=== PATIENT | female | born 1960 | race Caucasian/White ===

== ENCOUNTER 2017-07-08 12:24 | Emergency (ER) | payer BC ==
[~2017-07-08] VITALS: Ht 160 cm; Wt 58.9 kg
[~2017-07-08 12:24] MED LIST: ALBUAER3 INH; CHOL1CAP34 PO; CYCL1TAB29 PO; DIAZ10 PO; DILA2TAB2 PO; DYAZ37.5 PO; OMEP20TA PO; VITA10002 IM
[2017-07-08 12:31] VITALS: BP 142/81; PULSE 98; RESP 16; TEMP 98.9; O2SAT 96
[2017-07-08] MEDS ORDERED: POTA8CAP PO (13:01)
[2017-07-08] MEDS ORDERED: MONT10TA4 PO (13:01)
[2017-07-08] MEDS ORDERED: VENTAER INH (13:01)
[2017-07-08] MEDS ORDERED: FLUT50SP EACH NARE (13:01)
[2017-07-08] MEDS ORDERED: HYDR4TAB PO (13:01)
[2017-07-08] MEDS ORDERED: FLUT100A INH (13:01)
[2017-07-08] MEDS ORDERED: ERGO2000 PO (13:01)
[2017-07-08] MEDS ORDERED: ACYC800T PO (13:01)
[2017-07-08] MEDS ORDERED: TEMA22.5 PO (13:01)
[2017-07-08] MEDS ORDERED: AMPH30CA PO (13:01)
--- NOTE | 2017-07-08 13:40 | PD ---
HPI Chief Complaint: Abdominal Pain Time Seen by Provider: 12:46 Travel History International Travel<30 days: No Contact w/Intl Traveler<30days: No Traveled to known affect area: No History of Present Illness HPI The patient was seen and examined in the presence of the nurse. At no point in time was I in the room without the nurse present. This patient has history of fibromyalgia and takes Dilaudid at home when needed for pain. She says that she 's had pain for 4 years. She came in today because her pain felt somewhat different than usual. No acute injury. No fever. Her symptoms are reportedly moderate. No alleviating factors. She says she did not take any pain pills even though she has been at home. PFSH Past Medical History Hx Anticoagulant Therapy: No Autoimmune Disease: No Anxiety: Yes Depression: Yes (MANY YEARS AGO) Heart Rhythm Problems: Yes (heart palpitations induced by exercise) Cancer: Yes (CERVICAL) Cardiovascular Problems: No Chemotherapy: No COPD: Yes Cerebrovascular Accident: No Diabetes: No Diminished Hearing: No Fibromyalgia: Yes GERD: Yes Genitourinary: No Hypertension: Yes Implanted Vascular Access Dvce: Yes Musculoskeletal: Yes Neurologic: Yes Reproductive: Yes ( CERVICAL CA) Respiratory: Yes (copd) Immunizations Current: Yes Tetanus Vaccination: > 5 Years Influenza Vaccination: No ?: Not Past Surgical History Abdominal Surgery: Yes (TUMMY TUCK) Body Medical Devices: BREAST IMPLANTS Cardiac Surgery: Yes (CARDIAC CATH, ANGIOPLASTY) Section: Yes (x1) Eye Surgery: Yes (EYELID LIFT) Gynecologic Surgery: Yes (HYSTERECTOMY, ) Hysterectomy: Yes Oral Surgery: Yes (TONSILLECTOMY) Tonsillectomy: Yes Other Surgery: Yes (breast reduction-several per pt) Social History Alcohol Use: Yes (beer occ) Tobacco Use: No (never) Substance Use: No Allergies-Medications (Allergen,Severity, Reaction): Coded Allergies: baclofen (Unverified Allergy, Severe, blurred vision, 07/08/17) desvenlafaxine (Unverified Allergy, Severe, everything, 07/08/17) duloxetine (Unverified Allergy, Severe, VISUAL DISTURBANCE, 07/08/17) gabapentin (Unverified Allergy, Severe, swelling, 07/08/17) pregabalin (Unverified Allergy, Severe, swelling, 07/08/17) acetaminophen (Unverified Allergy, Intermediate, visual, 07/08/17) celecoxib (Unverified Allergy, Intermediate, visual changes, 07/08/17) hydrocodone (Unverified Allergy, Intermediate, visual, 07/08/17) zolpidem (Unverified Allergy, Intermediate, amnesia, 07/08/17) carvedilol (Unverified Allergy, Mild, drowsiness, 07/08/17) Reported Meds & Prescriptions Reported Meds & Active Scripts Active Reported Flovent Diskus Inh (Fluticasone Powder Inh) 100 Mcg/Blist Aerp 100 Mcg INH BID Ventolin Hfa 18 GM Inh (Albuterol Sulfate) 90 Mcg/Act Aer 2 Puff INH Q4-6H PRN Fluticasone Nasal [place] 50 Mcg/Act Naspr 50 Mcg EACH NARE BID 50 mcg/spray Potassium Chloride ER (Potassium Chloride) 8 Meq Cap 8 Meq PO DAILY Acyclovir 800 Mg Tab 800 Mg PO TID Temazepam 22.5 Mg Cap 22.5 Mg PO HS PRN Hydromorphone (Hydromorphone HCl) 4 Mg Tab 4 Mg PO BID PRN Amphetamine-Dextroamphetamine ER 24 HR 30 Mg Cap 30 Mg PO DAILY Once daily in the morning. Vitamin D2 (Ergocalciferol) 2,000 Unit Tab 50,000 Units PO WEEKLY Montelukast (Montelukast Sodium) 10 Mg Tab 10 Mg PO HS Proair Hfa 8.5 GM Inh (Albuterol Sulfate) 90 Mcg/Act Aer 2 Puff INH Q4-6H PRN 108 mcg/actuation Flexeril (Cyclobenzaprine HCl) 10 Mg Tab 10 Mg PO TID Valium (Diazepam) 10 Mg Tab 10 Mg PO HS PRN Vitamin B-12 (Cyanocobalamin) 1,000 Mcg Tab 1,000 Mcg IM EVERY OTHER WEEK Omeprazole 20 Mg Tab 20 Mg PO DAILY Dyazide (Triamterene-Hydrochlorothiazide) 37.5-25 Mg Cap 1 Cap PO HS Review of Systems Cardiovascular: No: Chest Pain or Discomfort Respiratory: No: Cough Gastrointestinal: No: Diarrhea Musculoskeletal: Positive: Pain Physical Exam Narrative GASTROINTESTINAL: Abdomen soft, non-tender, nondistended. Positive bowel sounds. No hepato-splenomegaly, or palpable masses. No guarding. SKIN: Focused skin assessment reveals no rash or ulcers. Skin is warm and dry. Palpation shows no induration or nodules. Data Data Last Documented VS Vital Signs Date Time Temp Pulse Resp B/P (MAP) Pulse Ox O2 Delivery O2 Flow Rate FiO2 07/08/17 12:31 98.9 98 16 142/81 (101) 96 MDM Medical Decision Making Medical Screen Exam Complete: Yes Emergency Medical Condition: Yes Medical Record Reviewed: Yes Differential Diagnosis Chronic pain syndrome, fibromyalgia, depression Narrative Course I have reviewed the patient's electronic medical record. Patient reports that she's had extensive workup for this pain including imaging and specialty consultation. She doesn't look to be in any pain. Her vital signs and exam are benign. It's hard to get out of the patient why she really even came. Very difficult for her to elicit a chief complaint. I don't see any objective evidence of emergent condition here. She says she just saw her family doctor recently for this. When I ask her what they discussed her decided she doesn't have any idea. She then says that she is here to get some pain relief. I offered her a couple of different things and she refused them both. She then got very upset and irate. I just don't have anything emergent to recommend for the situation. She ended up just walking out rather than waiting for her instructions or paperwork. After I had left the room the patient then told the nurse that she really just came here to have her headache evaluated. However, she never once mentioned headache to me. This whole situation was very bizarre. Diagnosis Primary Impression: Chronic pain syndrome Additional Instructions: The patient was advised to follow up with their physician and return if they worsen. Med/Other Pt SpecificInfo: Other Disposition: 01 DISCHARGE HOME Condition: Stable Kevin Lemus MD Jul 08, 2017 13:40
== END 2017-07-08 13:58 | disposition home or self-care (01) ==
LOC: PHED 12:24
DX: G89.4 Chronic pain syndrome (principal)
CPT/HCPCS: 99281

== ENCOUNTER 2018-01-09 14:55 | Emergency (ER) | payer BC ==
[~2018-01-09] VITALS: Ht 160 cm; Wt 62.0 kg
[~2018-01-09 14:55] MED LIST changes: +ACYC800T PO; +AMPH30CA PO; -CHOL1CAP34 PO; +CYCL10TA PO; -CYCL1TAB29 PO; -DILA2TAB2 PO; +ERGO2000 PO; +FLUT100A INH; +FLUT50SP EACH NARE; +HYDR4TAB PO; +MONT10TA4 PO; -OMEP20TA PO; +OMEP20TA93 PO; +POTA8CAP PO; +TEMA22.5 PO; +VENTAER INH
[2018-01-09 15:51] VITALS: BP 132/74; PULSE 105; RESP 16; TEMP 98.5; O2SAT 97
[2018-01-09] MEDS ORDERED: KETOROLAC TROMETHAMINE 60 MG/2 ML (IM) VIAL IM ONE (16:30)
--- NOTE | 2018-01-09 16:53 | RADRPT ---
EXAM DATE/TIME: 01/09/2018 16:30 [facility] COMPARISON: No previous studies available for comparison. INDICATIONS : Trauma, fall. Syncopal episode. RADIATION DOSE: 59.01 CTDIvol (mGy) MEDICAL HISTORY : None SURGICAL HISTORY : None. ENCOUNTER: Initial ACUITY: 1 day PAIN SCALE: 4/10 LOCATION: cranial TECHNIQUE: Multiple contiguous axial images were obtained of the head. Using automated exposure control and adj ustment of the mA and/or kV according to patient size, radiation dose was kept as low as reasonably a chievable to obtain optimal diagnostic quality images. DICOM format image data is available electro nically for review and comparison. FINDINGS: CEREBRUM: The ventricles are normal for age. No evidence of midline shift, mass lesion, hemorrhage or acute in farction. No extra-axial fluid collections are seen. POSTERIOR FOSSA: The cerebellum and brainstem are intact. The 4th ventricle is midline. The cerebellopontine angle i s unremarkable. EXTRACRANIAL: The visualized portion of the orbits is intact. SKULL: The calvaria is intact. No evidence of skull fracture. CONCLUSION: Negative for acute process George Pitts MD FACR on January 09, 2018 at 16:50 Board Certified Radiologist. This report was verified electronically.
--- NOTE | 2018-01-09 16:54 | PD ---
HPI Chief Complaint: Fall Time Seen by Provider: 16:02 Travel History International Travel<30 days: No Contact w/Intl Traveler<30days: No Traveled to known affect area: No History of Present Illness HPI 57-year-old female arrives with a complaint of pain from the coccyx of the cervical spine which she states is constant and severe. It started when she fell over and her kitchen. The fall was about 2 weeks ago. She reports acute on chronic pain. She reports only Dilaudid was effective for pain control. She has missed doctor's appointments due to pain. She reports movement is painful. She also describes a sensation of confusion and vague headache. Patient denies loss of consciousness. No fecal or urinary incontinence or change in bowel bladder habits. PFSH Past Medical History Hx Anticoagulant Therapy: No Autoimmune Disease: No Anxiety: Yes Depression: Yes (MANY YEARS AGO) Heart Rhythm Problems: Yes (heart palpitations induced by exercise) Cancer: Yes (CERVICAL) Cardiovascular Problems: No Chemotherapy: No COPD: Yes Cerebrovascular Accident: No Diabetes: No Diminished Hearing: No Fibromyalgia: Yes GERD: Yes Genitourinary: No Hypertension: Yes Implanted Vascular Access Dvce: Yes Musculoskeletal: Yes Neurologic: Yes Reproductive: Yes ( CERVICAL CA) Respiratory: Yes (copd) Immunizations Current: Yes Past Surgical History Abdominal Surgery: Yes (TUMMY TUCK) Body Medical Devices: BREAST IMPLANTS Cardiac Surgery: Yes (CARDIAC CATH, ANGIOPLASTY) Section: Yes (x1) Eye Surgery: Yes (EYELID LIFT) Gynecologic Surgery: Yes (HYSTERECTOMY, ) Hysterectomy: Yes Oral Surgery: Yes (TONSILLECTOMY) Tonsillectomy: Yes Other Surgery: Yes (breast reduction-several per pt) Social History Alcohol Use: Yes (beer occ) Tobacco Use: No (never) Substance Use: No Allergies-Medications (Allergen,Severity, Reaction): Coded Allergies: baclofen (Unverified Allergy, Severe, blurred vision, 01/09/18) desvenlafaxine (Unverified Allergy, Severe, everything, 01/09/18) duloxetine (Unverified Allergy, Severe, VISUAL DISTURBANCE, 01/09/18) gabapentin (Unverified Allergy, Severe, swelling, 01/09/18) pregabalin (Unverified Allergy, Severe, swelling, 01/09/18) acetaminophen (Unverified Allergy, Intermediate, visual, 01/09/18) celecoxib (Unverified Allergy, Intermediate, visual changes, 01/09/18) hydrocodone (Unverified Allergy, Intermediate, visual, 01/09/18) zolpidem (Unverified Allergy, Intermediate, amnesia, 01/09/18) carvedilol (Unverified Allergy, Mild, drowsiness, 01/09/18) Reported Meds & Prescriptions Reported Meds & Active Scripts Active Robaxin (Methocarbamol) 500 Mg Tab 500 Mg PO TID Reported Adderall (Amphetamine-Dextroamphetamine) 20 Mg Tab 20 Mg PO DAILY Avoid late evening doses. Space doses at least 4 to 6 hours if more than once/day dosing. Fluticasone Nasal [place] 50 Mcg/Act Naspr 50 Mcg EACH NARE BID 50 mcg/spray Ventolin Hfa 18 GM Inh (Albuterol Sulfate) 90 Mcg/Act Aer 2 Puff INH Q4-6H PRN Potassium Chloride ER (Potassium Chloride) 8 Meq Cap 8 Meq PO DAILY Acyclovir 800 Mg Tab 800 Mg PO TID Temazepam 22.5 Mg Cap 22.5 Mg PO HS PRN Hydromorphone (Hydromorphone HCl) 4 Mg Tab 4 Mg PO BID PRN Montelukast (Montelukast Sodium) 10 Mg Tab 10 Mg PO HS Valium (Diazepam) 10 Mg Tab 10 Mg PO HS PRN Omeprazole 20 Mg Tab 20 Mg PO DAILY Dyazide (Triamterene-Hydrochlorothiazide) 37.5-25 Mg Cap 1 Cap PO HS Review of Systems Except as stated in HPI: all other systems reviewed are Neg General / Constitutional: No: Fever, Chills Cardiovascular: No: Chest Pain or Discomfort, Tachycardia Respiratory: No: Wheezing Gastrointestinal: No: Diarrhea Genitourinary: No: Frequency Physical Exam Narrative GENERAL: 57-year-old female mild to moderate distress secondary to pain and/or anxiety Vital Signs Date Time Temp Pulse Resp B/P (MAP) Pulse Ox O2 Delivery O2 Flow Rate FiO2 01/09/18 15:51 98.5 105 16 132/74 (93) 97 SKIN: Warm and dry. HEAD: Atraumatic. Normocephalic. EYES: Pupils equal and round. No scleral icterus. No injection or drainage. ENT: No nasal bleeding or discharge. Mucous membranes pink and moist. NECK: Trachea midline. No JVD. CARDIOVASCULAR: Tachycardia. Regular rhythm. RESPIRATORY: No accessory muscle use. Clear to auscultation. Breath sounds equal bilaterally. GASTROINTESTINAL: Abdomen soft, non-tender, nondistended. Hepatic and splenic margins not palpable. MUSCULOSKELETAL: Diffuse nonspecific paraspinal and spinal tenderness. Patient is ambulatory. NEUROLOGICAL: Awake and alert. No obvious cranial nerve deficits. Motor grossly within normal limits. Five out of 5 muscle strength in the arms and legs. Normal speech. The patellar tendon reflexes 2+ bilaterally. There is no ankle clonus which the patient states is chronic. PSYCHIATRIC: Appropriate mood and affect; insight and judgment normal. Data Data Last Documented VS Vital Signs Date Time Temp Pulse Resp B/P (MAP) Pulse Ox O2 Delivery O2 Flow Rate FiO2 01/09/18 16:20 Room Air 01/09/18 15:51 98.5 105 16 132/74 (93) [address] Brain W/O Iv Contrast(Rout) (01/09/18 ) Ketorolac Inj (Toradol Inj) (01/09/18 16:30) MDM Medical Decision Making Medical Screen Exam Complete: Yes Emergency Medical Condition: Yes Medical Record Reviewed: Yes Differential Diagnosis Chronic pain, acute on chronic pain, fracture, myofascial strain, epidural abscess, paraspinal hematoma, compression on the cord, lumbar spine fracture Narrative Course Patient's complaint, acute on chronic pain due to a fall at her house 2 weeks ago, reveals no acute physical exam abnormality. CT head negative Pt complained of L neck pain when CT head results discussed. She continued to complain of thoracic and low back pain. She iterated desire for CT imaging and after it was ordered elected to leave and follow up as an outpatient for imaging. She was observed to ambulate from the ER with a normal gate. Robaxin script with strict written. Precautions discussed at bedside. Diagnosis Primary Impression: Fall Qualified Codes: W19.XXXA - Unspecified fall, initial encounter Additional Impression: Acute exacerbation of chronic low back pain Referrals: Primary Care Physician 2 days Med/Other Pt SpecificInfo: Prescription(s) given Scripts Methocarbamol (Robaxin) 500 Mg Tab 500 MG PO TID for Muscle Spasm, #15 TAB 0 Refills Prov: Bunny Estrella MD 01/09/18 Disposition: 01 DISCHARGE HOME Condition: Stable Bunny Estrella MD Jan 09, 2018 16:54
[2018-01-09] MEDS ORDERED: ADDE20 PO (17:08)
[2018-01-09] MEDS ORDERED: FLUT50SP EACH NARE (17:08)
[2018-01-09] MEDS ORDERED: ROBA500T PO (18:57)
== END 2018-01-09 19:03 | disposition home or self-care (01) ==
LOC: PHED 14:55 → PHEFT 19:03
DX: M54.5 Low back pain (principal); G89.29 Other chronic pain; W19.XXXA Unspecified fall, initial encounter; Y92.000 Kitchen of unspecified non-institutional (private) residence as the place of occurrence of the external cause; I10 Essential (primary) hypertension; J44.9 Chronic obstructive pulmonary disease, unspecified; M79.7 Fibromyalgia; F32.9 Major depressive disorder, single episode, unspecified; F41.9 Anxiety disorder, unspecified; Z85.41 Personal history of malignant neoplasm of cervix uteri; Z88.8 Allergy status to other drugs, medicaments and biological substances; Z79.899 Other long term (current) drug therapy
CPT/HCPCS: 70450; 96372; 99285; J1885

== ENCOUNTER → 2018-04-09 | Outpatient (CLI) | payer BC ==
[~2018-04-09] MED LIST changes: +ADDE20 PO; -ALBUAER3 INH; -AMPH30CA PO; -CYCL10TA PO; -ERGO2000 PO; -FLUT100A INH; +FLUTI44I INH; +MAGN400T2 PO; +MUPI2%T TOPICAL; +OXYC1TAB35 PO; +PERC7.5T13 PO; +ROBA500T PO; +TEMA30CA PO; -VITA10002 IM; +VITA500012 PO; +ZOFR8TAB4 SL
--- NOTE | 2018-04-10 13:58 | EKG ---
Date Performed: 04/09/2018 Time Performed: 13:45:29 PTAGE: 57 years EKG: Sinus rhythm SEPTAL MYOCARDIAL INFARCTION, OF INDETERMINATE AGE ABNORMAL ECG NO PREVIOUS TRACING DOCTOR: Leander Huffman Interpretating Date/Time 04/10/2018 13:56:52
== END ==
LOC: CPRE 13:31
PROVIDERS: ATTEND Obstetrics & Gynecology
DX: Z01.810 Encounter for preprocedural cardiovascular examination (principal); R10.2 Pelvic and perineal pain; A63.0 Anogenital (venereal) warts; R94.31 Abnormal electrocardiogram [ECG] [EKG]
CPT/HCPCS: 93005

== ENCOUNTER → 2018-04-12 | Day surgery (SDC) | payer BC ==
--- NOTE | 2018-04-11 16:31 | MH ---
cc: Jorge Morris MD DATE OF ADMISSION: 04/12/2018 ADMITTING DIAGNOSES: 1. Pelvic pain. 2. Perineal human papillomavirus, recurrent. HISTORY OF PRESENT ILLNESS: The patient is a 57-year-old white female, para 1-0-0-1 with a long history of atypical pelvic pain, primarily right lower quadrant, and now with recurrent perineal HPV. Noninvasive studies have been normal, and she is now admitted for surgical evaluation. PAST SURGICAL HISTORY: for delivery, daughter in 1992 . TERRENCE-BSO, 2003, for endometriosis. Breast reduction MEDICATIONS: She will bring in list. ALLERGIES: SHE HAS MULTIPLE MEDICATION INTOLERANCE. SMI: History of fibromyalgia, ADD, anxiety. SOCIAL HISTORY: She is , employed. Alcohol, tobacco and drugs are none. FAMILY HISTORY: Noncontributory. REVIEW OF SYSTEMS: Negative. PHYSICAL EXAMINATION: GENERAL: This is a well-nourished, well-developed white female. VITAL SIGNS: Stable. HEENT: Normal. CHEST: Clear. HEART: Regular rate. BREASTS: With implants, benign. PELVIC: Reveals an HPV lesion, 1 cm, perineal. Vagina is atrophic. Bimanual, no masses or pain. RECTAL: Deferred. ASSESSMENT: As above. She is now admitted for: 1. Laparoscopy, possible lysis of adhesions. 2. Excision of the perineal human papillomavirus. While in the office, the risks and complications were explained and accepted. MD MAURISIO Barrios/RENNY , 04:13 PM , 04:29 PM MT[facility]orinna
[~2018-04-12] VITALS: Ht 157.5 cm; Wt 58.3 kg
[~2018-04-12] MED LIST changes: +*MEPERIDINE 25 MG INJ VIAL PERIprocedural Use ONLY ONE; +*RESP: ALBUTEROL 2.5 MG/3 ML NEB (PRN) PERIprocedural Use ONLY NEB ONE; +ACETAMINOPHEN 1000 MG/100 ML 100 ML IV ONE; -ACYC800T PO; +APREPITANT 40 MG CAP ONE; +BACITRACIN TOP OINT 15 GM TUBE ONE; +BUPIVACAINE/EPINEPHRINE 0.5% PF 30 ML VIAL ONE; +CHLORHEXIDINE GLUCONATE 2 % 1 PACK (2 CLOTHS) TOPICAL PRN; +DEXAMETHASONE SOD PHOS 4 MG/ML VIAL IV ONE; +DO NOT ADM ANY ANTICOAGULANT DRUGS PRN; -HYDR4TAB PO; +HYDROmorphone HCL PF 2 MG/ML VIAL ONE; +KETOROLAC TROMETHAMINE 30 MG/ML (IVP) VIAL IV PUSH ONE; +LACTATED RINGER'S 1000 ML INJ 1,000 ML IV ONE; +LACTATED RINGER'S 1000 ML IV PRN; +LIDOCAINE HCL 1% PF 5 ML SYRINGE OTHER ONE; +LORazepam 2 MG/ML VIAL ONE; +METOCLOPRAMIDE HCL 10 MG/2 ML VIAL IV PRN; +MIDAZOLAM HCL 2 MG/2 ML VIAL ONE; -MONT10TA4 PO; +ONDANSETRON HCL 4 MG/2 ML VIAL IV ONE; +OXYTOCIN 10 UNIT/ML AMP ONE; +PETROLATUM 30 GM TUBE ONE; +POVIDONE IODINE 5% (ANTISEPSIS KIT) 4 APPLICATIONS EACH NARE PRN; +PROPOFOL 200 MG/20 ML AMP IV ONE; +PROPOFOL 200 MG/20 ML AMP ONE; -ROBA500T PO; +ROCURONIUM INJ 50 MG/5 ML SYRINGE IV PUSH ONE; +SCOPOLAMINE 1.5 MG PATCH ONE; +SODIUM CHLORID 0.9% 500 ML IV PRN; +SUGAMMADEX SODIUM 200 MG/2 ML VIAL IV PUSH ONE; -TEMA22.5 PO; +ceFAZolin 1,000 MG/NS 100 ML IV SCH; +oxyCODONE/ACETAMINOPHEN 7.5 MG/325 MG TAB PO PRN
--- NOTE | 2018-04-12 08:39 | MP ---
cc: Jorge Morris MD DATE OF OPERATION: 04/12/2018 PREOPERATIVE DIAGNOSES: 1. Pelvic pain. 2. Perineal human papilloma virus recurrent, possible dysplasia. POSTOPERATIVE DIAGNOSES: 1. Pelvic pain. 2. Perineal human papilloma virus recurrent, possible dysplasia. PROCEDURE PERFORMED: Laparoscopy and excision of perineal HPV. ANESTHESIA: General ET. SURGEON: Jorge Morris MD POTATO SEED CUTTER: BLACK Fair ESTIMATED BLOOD LOSS: About 10 mL. FLUIDS: About 1 liter crystalloid. OBJECTIVE FINDINGS: Following induction of adequate general endotracheal anesthesia, the patient was prepped and draped supine on the operating table in dorsal lithotomy position, usual sterile fashion, with the bladder being drained via in and out catheterization. The abdomen was opened through a .5 cm infraumbilical incision. A 5 port was placed and a second 5 in the left lower quadrant. The pelvis was inspected and was entirely free of adhesions. She is status post a TERRENCE/BSO. The appendix was seen was normal, mobile. No adhesions. The cul-de-sacs were clear. Liver edge was normal. No adhesions. There was no sign of any hernias. The scope was now removed, gas was allowed to escape. The ports were removed and injected with ropivacaine plus epinephrine 5 mL each and closed with 3-0 Monocryl subcuticular and Dermabond. Attention was now redirected to the perineum. There was a 1.5 cm lesion in the perineum just off the left and above the rectum. This was outlined with a marking pen, infiltrated with 5 mL of bupivacaine plus epinephrine and excised with a knife. The cautery was used for hemostasis and the wound was reapproximated with interrupted sutures of 3-0 Vicryl and Dermabond applied. All counts were correct. The patient's legs were taken out of the stirrups. She was awakened and taken to recovery room in good condition. MD MAURISIO Barrios/SARAH , 08:19 AM , 08:37 AM LULY
[2018-04-12 10:12] VITALS: BP 139/82; PULSE 96; RESP 16; TEMP 97.7; O2SAT 97
== END | disposition home or self-care (01) ==
LOC: HSDC 05:33
PROVIDERS: ATTEND Obstetrics & Gynecology
DX: R10.2 Pelvic and perineal pain (principal); A63.0 Anogenital (venereal) warts; J44.9 Chronic obstructive pulmonary disease, unspecified; I10 Essential (primary) hypertension
CPT/HCPCS: 00840; 58662; 88305; 94664; J0131; J0690; J1100; J1170; J1885; J2060; J2175; J2250; J2405; J3010; J7120; J7613; J8501; J2590